=== PATIENT | female | born 1990 | race American Indian/Alaskan Native ===

== ENCOUNTER 2016-09-19 17:25 | Emergency (ER) | payer SELFPAY ==
[2016-09-19] MEDS ORDERED: TORADOL IM ONE (21:13)
[2016-09-19] MEDS ORDERED: DELTASONE PO ONE (21:13)
--- NOTE | 2016-09-19 21:41 | Emergency Department Report ---
HPI - General Chief Complaint: Upper Respiratory Infection Time Seen by Provider: 09/19/16 21:12 - HPI HPI: This is a 26-year-old female who presents to the emergency department with a two -week history of body aches, joint pains, chest congestion, mixed dry and productive cough and headache. She also complains of a more recent history of nausea, vomiting and diarrhea. Patient has been trying some [id number] NyQuil and DayQuil without any relief. She does not have a primary care doctor. She denies tobacco or illicit drug use or abuse. No recent travel or sick contacts at home. She has no past medical history. She has a past surgical history of a tubal ligation. ED Past Medical Hx - Past Medical History Previous Medical History?: No - Surgical History Past Surgical History?: Yes Hx Cholecystectomy: Yes Additional Surgical History: Tubal, Pancreas cyst - Social History Smoking Status: Never Smoker Substance Use Type: None - Medications Home Medications: Home Medications Medication Instructions Recorded Confirmed Last Taken Type ALBUTEROL Inhaler [ProAir HFA 2 puff IH QID PRN #1 inhalation 09/19/16 Unknown Rx Inhaler] Azithromycin [Zithromax Z-RAMIRO] 250 mg PO DAILY #6 tab 09/19/16 Unknown Rx guaiFENesin/CODEINE [Robitussin AC] 5 ml PO Q6H PRN #80 ml 09/19/16 Unknown Rx predniSONE [Deltasone] 20 mg PO QDAY #5 tab 09/19/16 Unknown Rx ED Review of Systems ROS: Stated complaint: SHIVERING/BODY ACHE/N/D/FEVER Other details as noted in HPI Comment: All other systems reviewed and negative Constitutional: chills, fever Eyes: denies: eye pain, eye discharge, vision change ENT: denies: ear pain, throat pain Respiratory: cough. denies: shortness of breath Cardiovascular: denies: chest pain, palpitations Gastrointestinal: nausea, vomiting, diarrhea Genitourinary: denies: urgency, dysuria, discharge Musculoskeletal: back pain, arthralgia, myalgia. denies: joint swelling Skin: denies: rash, lesions Neurological: headache. denies: weakness, numbness, paresthesias Physical Exam - Physical Exam Vital Signs: Vital Signs 09/19/16 17:52 Temperature 99.0 F Pulse Rate 98 H Respiratory 18 Rate Blood Pressure 126/73 O2 Sat by Pulse 100 Oximetry Physical Exam: GENERAL: The patient is well-developed well-nourished. HEENT: Normocephalic. Atraumatic. Extraocular motions are intact. Patient has moist mucous membranes. Pupils equal reactive to light bilaterally. Normal bilateral external ear canals and tympanic membranes. Oropharynx clear without tonsillar hypertrophy, erythema or exudates. NECK: Supple. Trachea is midline. CHEST/LUNGS: Mild wheezing. The chest. No cough heard during examination. No tachypnea or accessory muscle use. There is no respiratory distress noted. HEART/CARDIOVASCULAR: Regular. There is no tachycardia. There is no gallop rub or murmur. ABDOMEN: Abdomen is soft, nontender. Patient has normal bowel sounds. There is no abdominal distention. SKIN: There is no rash. There is no edema. There is no diaphoresis. NEURO: The patient is awake, alert, and oriented. The patient is cooperative. The patient has no focal neurologic deficits. The patient has normal speech. MUSCULOSKELETAL: There is no tenderness or deformity. There is no limitation range of motion. There is no evidence of acute injury. ED Course Vital Signs 09/19/16 17:52 Temperature 99.0 F Pulse Rate 98 H Respiratory 18 Rate Blood Pressure 126/73 O2 Sat by Pulse 100 Oximetry ED Medical Decision Making - Radiology Data Radiology results: image reviewed interpreted by me: Chest x-ray did not show any acute process. Heart is normal shape and size. No effusions. No pneumothorax. No signs of pneumonia seen. - Medical Decision Making 26 yo female presents to the emergency department with a two-week history of body aches, cough and headache and more recent nausea, vomiting and diarrhea. A chest x-ray was done that does not show any pneumonia, pneumothorax or pleural effusions. She was negative for influenza. Patient was given some steroids, Robitussin-AC and a Toradol shot. Upon reevaluation the patient says that she is feeling better. Patient's vital signs are stable throughout her ED course including being afebrile. Patient appears to have a combination of bronchitis and possible upper respiratory infection. She'll be treated with steroids, Robitussin-AC, albuterol inhaler and Z-Ramiro. There is been no further nausea, vomiting or diarrhea since being in the emergency department. Headache is resolved. Patient was given multiple referrals for primary care. She'll return to the ER with any worsening of her symptoms or any acute distress. - Differential Diagnosis bronchitis, asthma, upper respiratory infection, pneumonia Critical Care Time: No Critical care attestation.: If time is entered above; I have spent that time in minutes in the direct care of this critically ill patient, excluding procedure time. ED Disposition Clinical Impression: Body aches, Cough, Bronchospasm Arthralgia Qualifiers: Joint pain location: unspecified Qualified Code(s): M25.50 - Pain in unspecified joint Disposition: DISCHARGED TO HOME OR SELFCARE Is pt being admited?: No Does the pt Need Aspirin: No Condition: Stable Instructions: Acute Bronchitis (ED), Upper Respiratory Infection (ED) Additional Instructions: These follow-up with a primary care doctor in the next few days. Return to the emergency department with any worsening of your symptoms or any acute distress. You've been prescribed a medication that is sedating. Therefore this medication cannot be mixed with alcohol, or taken prior to driving, working, or being responsible for children. Prescriptions: predniSONE [Deltasone] 20 mg PO QDAY #5 tab ALBUTEROL Inhaler [ProAir HFA Inhaler] 2 puff IH QID PRN #1 inhalation PRN Reason: Shortness Of Breath guaiFENesin/CODEINE [Robitussin AC] 5 ml PO Q6H PRN #80 ml PRN Reason: Cough Azithromycin [Zithromax Z-RAMIRO] 250 mg PO DAILY #6 tab Referrals: PRIMARY CARE, [Primary Care Provider] - 3-[address] [facility] [Outside] - 3-5 Days [facility] [Outside] - 3-5 Days [facility] [Outside] - 3-5 Days Time of Disposition: 23:45
[2016-09-19] MEDS ORDERED: ROBITUSSIN AC PO ONE (22:39)
[2016-09-19 23:53] VITALS: BP 104/69
--- NOTE | 2016-09-20 09:09 | XRay Report ---
CHEST 2 VIEWS: INDICATION: Shortness of breath, dry cough for 2-3 days. COMPARISON: None similar at this institution. FINDINGS: PA and lateral chest radiographs demonstrate normal cardiomediastinal silhouette. No pleural effusions or CHF, though bronchovascular markings somewhat prominent infrahilar bilaterally. Bilateral nipple piercing ornaments. Unremarkable bones. CONCLUSION: Prominent bilateral lower lung markings without dense focal pneumonia, as described. Please also correlate clinically and with prior chest imaging, if available. Thank you for the opportunity to participate in this patient's care.
== END 2016-09-19 23:45 | disposition home or self-care (01) ==
LOC: ED 17:25
DX: J98.01 Acute bronchospasm (principal); M79.1 Myalgia; M25.50 Pain in unspecified joint
CPT/HCPCS: 71020; 87400; 96372; 99283; J1885; J7512